=== PATIENT | female | born 1980 | race Caucasian/White ===

== ENCOUNTER 2017-09-14 15:54 | Inpatient (IN) | payer OTHER, SELFPAY ==
[2017-09-14 16:04] VITALS: BMI 33.1
[2017-09-14] MEDS: miSOPROStol 25 MCG TABLET VAGINAL (17:14)
[2017-09-14] MEDS: 0.9% Saline Lock 10 ML Syringe IV (17:15)
[2017-09-14 17:40] LABS: Hematocrit 35.6 % (37-47); Hemoglobin 11.7 g/dl (12.0-15.0); Mean Corp Hgb Conc 32.9 g/gl (32-36); Mean Corpuscular Hgb 30.3 pg (27.0-32.0); Mean Corpuscular Volume 92.2 fL (81-99); Mean Platelet Vol. 12.3 fl (6.2-12.0); Platelet Count 155 K/mm3 (150-450); RBC Distribution Width SD 46.3 fl (35.1-43.9); Red Blood Count 3.86 M/mm3 (4.2-5.4); Scan Indicated on CBC? Y/N NO; White Blood Count 7.1 K/mm3 (4.4-11.0)
[2017-09-14] MEDS: Lactated Ringers 1,000 ML 50 ML IV ×2 (18:39→21:34)
[2017-09-14] MEDS: 0.9% Normal Saline 100 ML IV.SOLN. INTRA-UTER (19:11)
--- NOTE | 2017-09-14 19:15 | PCM.HP.OB ---
History Date of Admission: 09/14/17 Final SUNNY: 09/07/17 Final SUNNY Source: US <20 weeks Gestational age: 41 Weeks and 0 Days History of this : 37yo @ 41 weeks here for IOL due to post dates. pt is dated by first trimester u/s which differs by 6 days of her LMP. pt denies VB, LOF or regular painful ctx. pt is transfer of care from [place] at 20 weeks. Pertinent Past Medical History: Hypercholesterolemia, anxiety Allergies No Known Allergies Allergy (Verified 09/14/17 16:07) Current Medications Acetaminophen (Tylenol) 325 - 650 mg PO Q4H PRN PRN PRN Reason: PAIN OR FEVER >100.4F Al Hydroxide/Mg Hydroxide (Mylanta Ii) 15 - 30 ml PO Q4H PRN PRN PRN Reason: INDIGESTION Citric Acid/Sodium Citrate (Bicitra) 30 ml PO UD PRN Lactated Ringer's () 1,000 mls @ 50 mls/hr IV .Q20H [facility] Last Admin: 09/14/17 18:39 Dose: 50 mls/hr Oxytocin/Sodium Chloride () 30 units in 500 mls @ 1 mls/hr IV .Q500H [facility] Last Admin: 09/14/17 17:15 Dose: Not Given Misoprostol (Cytotec) 25 mcg VAGINAL Q4H [facility] Stop: 09/15/17 13:16 Last Admin: 09/14/17 17:14 Dose: 25 mcg Nalbuphine HCl (Nubain) 5 - 10 mg IV Q3H PRN PRN PRN Reason: PAIN (4-10/10) Ondansetron HCl (Zofran) 4 mg IV Q8H PRN PRN PRN Reason: NAUSEA Promethazine HCl (Phenergan (Ll)) 6.25 - 12.5 mg IV Q4H PRN PRN; Protocol PRN Reason: IF NAUSEA PERSISTS Sodium Chloride () 5 - 15 ml IV UD [facility] Last Admin: 09/14/17 17:15 Dose: 10 ml Smoking Status: Never smoker Alcohol: None Drug Use: none Number of Fetus(es): 1 Review of Systems Cardiovascular: Denies: Chest Pain Respiratory: Denies: Cough Gastrointestinal: Denies: Abdominal Pain Physical Exam General: Alert, Oriented x3 Abdomen: Soft, Non Tender, Gravid Estimated gestational size: Appropriate for gestational size Presentation: Cephalic Cervix Dilation (cm): 1 Station: -2 Effacement (%): 80 Assessment/Plan 37yo @ 41 weeks, labor induction 1) admit to L&D 2) monitor FHR/TOCO 3) Labs reviewed: GBS NEG, Rub imm, HIV neg, HEP B neg, A+, RPR non reactive 4) Maria placed, will start pitocin 4 hr after cytotec
--- NOTE | 2017-09-14 19:22 | HP.PCM_ITS ---
History Date of Admission: 09/14/17 Final SUNNY: 09/07/17 Final SUNNY Source: US <20 weeks Gestational age: 41 Weeks and 0 Days History of this : 37yo @ 41 weeks here for IOL due to post dates. pt is dated by first trimester u/s which differs by 6 days of her LMP. pt denies VB, LOF or regular painful ctx. pt is transfer of care from [place] at 20 weeks. Pertinent Past Medical History: Hypercholesterolemia, anxiety Allergies No Known Allergies Allergy (Verified 09/14/17 16:07) Current Medications Acetaminophen (Tylenol) 325 - 650 mg PO Q4H PRN PRN PRN Reason: PAIN OR FEVER >100.4F Al Hydroxide/Mg Hydroxide (Mylanta Ii) 15 - 30 ml PO Q4H PRN PRN PRN Reason: INDIGESTION Citric Acid/Sodium Citrate (Bicitra) 30 ml PO UD PRN Lactated Ringer's () 1,000 mls @ 50 mls/hr IV .Q20H [facility] Last Admin: 09/14/17 18:39 Dose: 50 mls/hr Oxytocin/Sodium Chloride () 30 units in 500 mls @ 1 mls/hr IV .Q500H [facility] Last Admin: 09/14/17 17:15 Dose: Not Given Misoprostol (Cytotec) 25 mcg VAGINAL Q4H [facility] Stop: 09/15/17 13:16 Last Admin: 09/14/17 17:14 Dose: 25 mcg Nalbuphine HCl (Nubain) 5 - 10 mg IV Q3H PRN PRN PRN Reason: PAIN (4-10/10) Ondansetron HCl (Zofran) 4 mg IV Q8H PRN PRN PRN Reason: NAUSEA Promethazine HCl (Phenergan (Ll)) 6.25 - 12.5 mg IV Q4H PRN PRN; Protocol PRN Reason: IF NAUSEA PERSISTS Sodium Chloride () 5 - 15 ml IV UD [facility] Last Admin: 09/14/17 17:15 Dose: 10 ml Smoking Status: Never smoker Alcohol: None Drug Use: none Number of Fetus(es): 1 Review of Systems Cardiovascular: Denies: Chest Pain Respiratory: Denies: Cough Gastrointestinal: Denies: Abdominal Pain Physical Exam General: Alert, Oriented x3 Abdomen: Soft, Non Tender, Gravid Estimated gestational size: Appropriate for gestational size Presentation: Cephalic Cervix Dilation (cm): 1 Station: -2 Effacement (%): 80 Assessment/Plan 37yo @ 41 weeks, labor induction 1) admit to L&D 2) monitor FHR/TOCO 3) Labs reviewed: GBS NEG, Rub imm, HIV neg, HEP B neg, A+, RPR non reactive 4) Maria placed, will start pitocin 4 hr after cytotec
[2017-09-14] MEDS: Oxytocin 30 units/NS 500 ml 30 UNITS/500 ML IV.SOLN IV (21:19)
[2017-09-15] VITALS (15 sets, daily range): BP systolic 107–150; BP diastolic 63–85; PULSE 69–100; RESP 15–18; TEMP 36.6–38; O2SAT 98–100
[2017-09-15] MEDS: Lactated Ringers 1,000 ML 50 ML IV ×3 (03:00→11:01)
[2017-09-15] MEDS: Ondansetron 4 MG/2 ML Vial IV ×2 (03:33→13:12)
--- NOTE | 2017-09-15 04:40 | PCM.PN.BLA ---
Progress Note pt seen at bedside, VE: /-1 AROM performed clear fluid. pitocin at 1mu. Continue to labor- anticipate
[2017-09-15] MEDS: 0.9% Saline Lock 10 ML Syringe IV (05:44)
--- NOTE | 2017-09-15 08:54 | PCM.PN.BLA ---
Progress Note S: Report received from Dr. Babin. Patient comfortable with epidural and was able to rest at this time. Pitocin for postdates IOL has been titrated on and off due to 's intolerance to contractions and occasional variable decelerations. Patient's at bedside providing support. O: VSS, Afebrile FHT baseline 120, moderate variability, +accels, occasional early and mild variable decels with nando to 80-100 with spontaneous resolution with position change. Rare late decel also noted. Ctx q 2-4 minutes, MVUs 100-150. Pitocin was at 3 milliunits and then prolonged variable noted so pitocin discontinued. SVE = unchanged, 5/80/-1, FSE placed A: 37 y/o, IOL @ 41+ weeks, Pitocin Postdates IOL, Category II FHT P: 1) Continue present management - pitocin titration until adequate labor 2) Encourage position changes 3) Reassess cervix PRN 4) Dr. Mark GARVIN OB back-up at this time updated about patient status. Will continue present management. Mar Garcia CNM
--- NOTE | 2017-09-15 12:48 | PCM.PN.BLA ---
Progress Note S: Patient sitting up in bed still feeling comfort from epidural. Pitocin remains off at this time. Discussion with nursing staff about category II FHT. Per nursing staff, meconium is now noted. now having more frequent mild variable and early decels with each contraction. O: VSS, Afebrile EFW = 8.5# by SAM Hutchinson FHT baseline 110, moderate variability, early decels, occasional prolonged variable decels x 2-3 minutes with nando to 90s with spontaneous recovery with position changes. Ctx q 2-3 minutes, palpate strong. MVU <200. Pitocin off. SVE = 8/90/-1, moderate meconium noted on glove A: 37 y/o @ 41+ weeks, IOL for postdates, Cateogry II FHT P: 1) Try H+K position at this time, also consider exaggerated side lying position to help with descent and rotation of baby 2) Anticipate Mar Garcia CNM
[2017-09-15] MEDS: Amnioinfusion- 0.9% NS 1,000 ML IV.SOLN. 300 ML INTRA-UTER (14:00)
--- NOTE | 2017-09-15 15:58 | PCM.PN.BLA ---
Progress Note S: Thick meconium noted with last pad check and patient's temperature has started to increase. Decision made to do repeat SVE at this time. O: VSS, TMax = 100.1 FHT baseline 150, min to moderate variability, variable and early decels noted, rare accels. Ctx q 2-3 minutes, moderate to strong palpation SVE = 7/80/-1, cervical swelling noted A: 37 y/o @ 41+ weeks, Failure to Progress/Arrest of Dilation, Category II FHT P: 1) Consult with Dr. Mark GARVIN - decision for LTCS made 2) Transition to Medical Management for LTCS Mar Garcia CNM
[2017-09-15] MEDS: Sodium Citrate/Citric Acid 30 ML UDC PO (16:03)
[2017-09-15] MEDS: Cefazolin 2 GM in 0.9% Normal Saline 100 ML IV (16:10)
[2017-09-15] MEDS: Oxytocin 30 units/NS 500 ml 30 UNITS/500 ML IV.SOLN 167 UNITS IV (16:36)
--- NOTE | 2017-09-15 17:00 | PLAC_PTH ---
PATIENT: EMMA TALAMANTES LOC: [facility] U#:[id number] AGE/SX: 37/F ROOM: [facility] RE09/14/[address]: Dr. Marisol Flores MD : 1980 BED: 1 DIS: 09/18/2017 SPEC #: [id number] RECD: 09/15/17 23:19 STATUS: AKHIL MARIA ISABEL #: [id number] HUONG: 09/15/17 17:[address]: Marisol Flores DEPT: SURGICAL PATHOLOGY RECD BY: Jj Montero ENTERED: 09/16/17 10:54 SP TYPE: PLACENTA OT DR: No Primary Care Phys Tissues: Placenta, NOS Procedures: Surgery Specimen Level V HEADER OPERATION: Primary section PRE-OP DIAGNOSIS: Meconium fluid TISSUE SUBMITTED: Placenta MICROSCOPIC DIAGNOSIS [place] placenta (598 gm): Umbilical cord ? trivascular with no evidence of inflammation. Placental membranes ? mild acute chorionitis and deciduitis and pigment laden macrophages. Placental disc ? remote infarct, mildly increased intraparenchymal microcalcifications, intervillous congestion, Raj-Alverto change and intravillous congestion. AM:audra 09/20/17 MICROSCOPIC DESCRIPTION Slides are reviewed. Pigment laden macrophages are consistent with meconium staining of placental membranes. Clinical correlation is suggested. GROSS DESCRIPTION SPECIMEN: PLACENTA / CLINICAL INFORMATION: A. Weight: 3.851 kg B. Gestational Age: 41 weeks C. Sex: Male PLACENTAL WEIGHT (POST FIXATION): 598 gm PLACENTAL DIMENSIONS: 22 x 19 x 2.5 cm PLACENTAL SHAPE: Usual ovoid PLACENTAL WEIGHT FOR GESTATIONAL AGE: Within 10-99th percentile MEMBRANES - Present A. Insertion: Marginal B. Site of rupture from edge: At edge of placental disc C. Color of membrane: Hanley-dillard D. Abnormalities: None UMBILICAL CORD - Present A. Color: Hanley-dillard B. Insertion: Marginal C. Length: 27.5 cm D. Diameter: 1.5 cm E. Number of vessels: Three F. Abnormalities: None PLACENTAL DISC - Present A. Color of surface: Hanley-dillard B. surface abnormalities: None C. Maternal cotyledons: Intact with minimal tears D. Attached retro placental clot: No clot E. Cut surface: Dark red and spongy F. Lesions: Sections reveal a firm, hanley-white lesion measuring 2 x 1 x 0.6 cm at the periphery of the placental disc. G. Separate clot: Absent SECTIONS SUBMITTED: 1. Membrane roll and umbilical cord ( end notched) 2. Placental disc, and maternal surfaces, lesion 3. Placental disc, and maternal surfaces 4. Placental disc, and maternal surfaces 5. Additional membranes AM:audra 09/17/17 TC:2 CPT: 16690
--- NOTE | 2017-09-15 17:04 | OP.PCM_ITS ---
Delivery Classification: TAE Final SUNNY: 09/07/17 Final SUNNY Source: US <20 weeks Gestational age: 41 Weeks and 1 Days Indications for : - - protracted active labor, thick MSF, category 2 FHTs, remote from delivery Description of Procedure: The patient was taken to the operating room. She was prepped and draped in the dorsal supine position with a leftward tilt. A Pfannenstiel skin incision was made approximately 2 cm above the symphysis pubis and carried through to underlying layer fascia with the scalpel. The fascia was incised incised in the midline and extended laterally with the Ramirez scissors. The fascia was dissected off the rectus muscles with blunt and sharp dissection. The rectus muscles were in the midline and the peritoneum was entered bluntly. The peritoneal incision was stretched and the bladder blade was placed. The uterine incision was made in a low transverse fashion with the scalpel and extended superiorly and inferiorly with blunt dissection. When the arthrotomy was made thick meconium-stained fluid port out. The 's head was very wedged into the pelvis. I used care to break the suction and bring the head up to the incision in the flexed position. The head was then delivered without difficulty delivered without difficulty. The remainder of the infant was delivered with gentle traction and fundal pressure in the standard fashion. The mouth and nares were bulb suctioned. The cord was clamped and cut as the infant was stimulated. He was delayed 30 seconds and then the was handed off to the waiting nursing staff. The placenta was delivered with fundal massage and gentle traction in the standard fashion. The uterus was left in the peritoneal cavity and cleared of all clots and debris. The uterine incision was closed with #1 Vicryl in a running locked fashion. A second layer of the same suture was used in an imbricating fashion and the incision was examined for hemostasis. There were no cervical extensions of the lacerations, however the uterine incision did extend all the way over to the uterine arteries on both sides. It was very hemostatic. nd hemostasis was assured. The rectus muscles were examined and any bleeding was Bovie cauterized. Peritoneum and rectus muscles were closed en bloc with an 0 Vicryl suture in a running standard fashion.. The rectus fascia was examined and the bleeding was Bovie cauterized and the rectus fascia was closed with 1 Vicryl suture in a running standard fashion. The subcutaneous tissue was examining and any bleeding was Bovie cauterized. The subcutaneous tissue was reapproximated with 3-0 Vicryl suture. The skin was closed in a subcuticular fashion by the MASH FILTER OPERATOR with me present in the labor and delivery suite. All sponge, lap, and needle counts were correct. The patient was taken to her room for recovery in a stable condition. Amniotic Membrane Rupture Type: Artificial Amniotic Fluid Description: Clear - intially, progressed to thick MSF Placenta Disposition: Sent to Pathology Specimen(s) sent to pathology: placenta Drain: Maria to straight drain Fluids Replaced: 900 cc Cord Vessel Description: 3 Vessels Esitmated Blood Loss (ml): 800 Infant Gender: Male (1 minute): 8 (5 minute): 9 Delayed cord clamping: Yes Pre-op Antibiotic Given: - - zitrhomax 500mg Complications: None - Admit VTE Documentation VTE Present on Admission: No VTE Mechan Device Prophylaxis: SCD's VTE Pharm Prophylaxis ordered?: No Reason prophylaxis not ordered:: Procedure Not Indicated
[2017-09-15] MEDS: Senna/Docusate Sodium 1 Tablet PO (22:05)
[2017-09-15] MEDS: Ketorolac 30 MG/ML Syringe IV (23:48)
[2017-09-15] MEDS: Lactated Ringers 1,000 ML 100 ML IV (23:48)
[2017-09-16] VITALS (9 sets, daily range): BP systolic 100–120; BP diastolic 64–77; PULSE 71–86; RESP 16–18; TEMP 36.8–37.2; O2SAT 92–99
[2017-09-16 06:19] LABS: Hematocrit 28.6 % (37-47); Hemoglobin 9.3 g/dl (12.0-15.0); Mean Corp Hgb Conc 32.5 g/gl (32-36); Mean Corpuscular Hgb 30.2 pg (27.0-32.0); Mean Corpuscular Volume 92.9 fL (81-99); Platelet Count 114 K/mm3 (150-450); RBC Distribution Width CV 14.3 % (11.6-14.6); RBC Distribution Width SD 47.1 fl (35.1-43.9); Red Blood Count 3.08 M/mm3 (4.2-5.4); White Blood Count 14.3 K/mm3 (4.4-11.0)
[2017-09-16 06:23] LABS: Scan Indicated on CBC? Y/N NO
[2017-09-16] MEDS: Ketorolac 30 MG/ML Syringe IV ×2 (07:00→13:21)
[2017-09-16] MEDS: Lactated Ringers 1,000 ML 100 ML IV (07:41)
[2017-09-16] MEDS: Senna/Docusate Sodium 1 Tablet PO ×2 (10:49→21:17)
--- NOTE | 2017-09-16 15:17 | PCM.PN.OB ---
Subjective: pain controlled, average lochia, mild nausea earlier, no lightheadedness. Sebas. regular diet - Physical Exam General: Alert, Cooperative, No apparent distress Abdomen: Soft, Distended - moderately, softly, Tender - appropriately Extremities: Edema - 1+ Skin: Incision - bandage clean, dry and intact Vital Signs Temp Pulse Resp BP Pulse Ox 98.2 F 71 16 100/64 99 09/16/17 05:40 09/16/17 07:17 09/16/17 13:00 09/16/17 05:40 09/16/17 09:00 Oxygen Delivery Method Room Air Weight: 77 kg Body Mass Index (BMI) 33.1 Intake and Output for Last 24 Hours 09/14/17 09/15/17 09/16/17 23:59 23:59 23:59 Intake Total 6292 / 6292 1081 / 1081 Output Total 3400 / 3400 700 / 700 Balance 2892 / 2892 381 / 381 Laboratory Tests Past 24 Hrs 09/16/17 05:35 WBC 14.3 H RBC 3.08 L Hgb 9.3 L Hct 28.6 L MCV 92.9 MCH 30.2 MCHC 32.5 RDW 14.3 RDW Differential 47.1 H Plt Count 114 L MPV 12.0 Assessment/Plan POD#1 doing well routine care infant and doing well
[2017-09-16] MEDS: Naproxen 250 MG Tablet PO (18:50)
[2017-09-16] MEDS: Acetaminophen 500 MG Tablet 1000 MG PO (20:01)
[2017-09-16] MEDS: oxyCODONE 5 MG Tablet PO (21:17)
[2017-09-17] MEDS: oxyCODONE 5 MG Tablet PO ×4 (02:01→21:37)
[2017-09-17 02:04] VITALS: BP 103/62; PULSE 70; RESP 18; TEMP 36.6; O2SAT 99
[2017-09-17] MEDS: Naproxen 250 MG Tablet PO ×2 (04:41→14:05)
[2017-09-17 08:12] VITALS: BP 112/61; PULSE 68; RESP 16; TEMP 36.8; O2SAT 98
--- NOTE | 2017-09-17 09:16 | PCM.PN.OB ---
Subjective: pain well controlled, average lochia, + flatus, shanel. regular diet - Physical Exam General: Alert, Cooperative, No apparent distress Abdomen: Soft, Distended - moderately, softly, Tender - appropriately Extremities: Edema - 1+ Skin: Incision - bandage clean, dry and intact Vital Signs Temp Pulse Resp BP Pulse Ox 98.3 F 68 16 112/61 98 09/17/17 08:12 09/17/17 08:12 09/17/17 08:12 09/17/17 08:12 09/17/17 08:12 Oxygen Delivery Method Room Air Weight: 77 kg Body Mass Index (BMI) 33.1 Intake and Output for Last 24 Hours 09/15/17 09/16/17 09/17/17 23:59 23:59 23:59 Intake Total 6292 / 6292 1081 / 1081 Output Total 3400 / 3400 700 / 700 600 / 600 Balance 2892 / 2892 381 / 381 -600 / -600 Assessment/Plan POD#2 doing well routine care infant and doing well
[2017-09-17] MEDS: Senna/Docusate Sodium 1 Tablet PO ×2 (09:29→21:37)
[2017-09-17 14:07] VITALS: BP 118/80; PULSE 73; RESP 18; TEMP 36.6; O2SAT 98
[2017-09-17 19:50] VITALS: BP 100/62; PULSE 81; RESP 16; TEMP 36.6; O2SAT 99
[2017-09-18 02:10] VITALS: BP 117/66; PULSE 61; RESP 16; TEMP 36.5; O2SAT 97
[2017-09-18] MEDS: oxyCODONE 5 MG Tablet PO ×2 (02:10→06:48)
[2017-09-18 07:45] VITALS: BP 108/67; PULSE 67; RESP 16; TEMP 37.2
[2017-09-18] MEDS: Senna/Docusate Sodium 1 Tablet PO (10:46)
--- NOTE | 2017-09-18 11:00 | PCM.PN.OB ---
Subjective: Pain well controlled. Average lochai, + flatus, no BM. Sebas. regular diet - Physical Exam General: Alert, Cooperative, No apparent distress Abdomen: Soft, Distended - moderately, softly, Tender - appropriately Extremities: Edema - 2+ Skin: Incision - clean, dry and intact Vital Signs Temp Pulse Resp BP Pulse Ox 98.9 F 67 16 108/67 97 09/18/17 07:45 09/18/17 07:45 09/18/17 07:45 09/18/17 07:45 09/18/17 02:10 Oxygen Delivery Method Room Air Weight: 77 kg Body Mass Index (BMI) 33.1 Intake and Output for Last 24 Hours 09/16/17 09/17/17 09/18/17 23:59 23:59 23:59 Intake Total 1081 / 1081 Output Total 700 / 700 600 / 600 Balance 381 / 381 -600 / -600 Medical Necessity - Tobacco Use Smoking Status: Never smoker Assessment/Plan POD#3 doing well ready for d/c infant and doing well
--- NOTE | 2017-09-18 11:04 | DCINST_ITS ---
Discharge Diet: No Restrictions Discharge Activity: Return to Normal Activity, May Not Drive - for 2 weeks, May not drive while taking narcotic pain medications., May Shower, May Take a Tub Bath - in 7 days. May resume sexual activity in: 4-6 weeks Lifting Restrictions: 20 pounds Additional Activity Instructions:: Nothing in the vagina for 4-6 weeks. You may return to work/school in 6 weeks. Call your doctor if your incision/area has: Continuous Slow Oozing, Sudden Increased Bleeding, Increased Pain/ Swelling, Increased Redness, Foul Smelling Discharge Call your doctor if you observe: Fever of 101 or Higher, Using more than one pad per hour - for 2 hours Suture Line Care: Avoid Pulling/Pushing, Avoid Pinching/Bending Cleanse incision/area with: Keep Dressing Clean & Dry Additional Instructions: If you experience any of the following, contact your healthcare provider. * Bleeding that soaks a pad every hour for 2 hours * Fever 100.4 or higher * Unrelieved incision or abdominal pain * Swelling, redness, discharge or bleeding from your incision or episiotomy site * Your incision begins to separate * Problems urinating (including inability to urinate or burning while urinating) . * Visual changes * Severe headache * Flu-like symptoms * Pain or redness in one of both of your breasts * Pain, warmth, tenderness or swelling in your legs, especially the calf area * Frequent nausea and vomiting * Symptoms of depression or anxiety If you experience any of the following, call 911 or go to the nearest Emergency Room. * Chest pain * Problems breathing * Seizure activity * Partial or complete paralysis of a body part, slurred speech, weakness or drooping of the face, or a sudden inability to walk or hold your balance Allergies/Adverse Reactions: Allergies No Known Allergies Allergy (Verified 09/14/17 16:07) Medications to take at Discharge Pediatric Multivitamin Comb#30 [Gummies Children Multivitamin] 1 tab PO BID Naproxen 500 mg PO BID PRN #40 tab 09/18/17 Oxycodone HCl/Acetaminophen [Percocet 5/325] 1 - 2 tablet PO Q6H PRN PRN 7 Days #28 tablet 09/18/17 The following prescriptions were given: Oxycodone HCl/Acetaminophen [Percocet 5/325] 1 - 2 tablet PO Q6H PRN PRN 7 Days #28 tablet PRN Reason: Pain Naproxen 500 mg PO BID PRN #40 tab PRN Reason: Pain Follow-Up: Call to make an appointment with your doctor for an incision check in 1-2 weeks. You will also need a 6 week post- follow up appointment. Please Follow Up With: Marisol Flores MD - [phone] When: Call to make an appointment in your provider's office in 1-2 and 6 weeks. Primary Care Physician: Care Physician,No Primary [Primary Care Provider] -
--- NOTE | 2017-09-18 11:04 | PCM.DC.SUM ---
Discharge Date and Diagnosis Date of Admission: 09/14/17 Date of Discharge: 09/18/17 Hospital Course and Treatment Operations: - - Primary LTCS via Pfannensteil skin incision Procedures: None Summary of Care Provided: The patient is a 37 year old admitted at 41 weeks gestation for induction of labor due to being 41 weeks. She had right attack followed by Maria, Pitocin and artificial rupture membranes induction of labor. She had a very protracted active phase of labor. Very slow progress from 5-8 cm. Then she had cervical swelling and was found to be 7 cm. In addition, she had prolonged decelerations. When her cervix began to swell, and she is found to be 7 cm instead a 8 it was recommended that she undergo a primary section. This was performed without difficulty and the was 9 pounds. She had mild acute blood loss anemia appropriate for blood loss during surgery. By postoperative day 3 she was ambulating, urinating, tolerating regular diet without difficulty. She was discharged home with routine instructions and prescriptions. [] Discharge Diet: No Restrictions Discharge Activity: Return to Normal Activity, May Not Drive - for 2 weeks, May not drive while taking narcotic pain medications., May Shower, May Take a Tub Bath - in 7 days. May resume sexual activity in: 4-6 weeks Additional Activity Instructions:: Nothing in the vagina for 4-6 weeks. You may return to work/school in 6 weeks. Call your doctor if your incision/area has: Continuous Slow Oozing, Sudden Increased Bleeding, Increased Pain/ Swelling, Increased Redness, Foul Smelling Discharge Call your doctor if you observe: Fever of 101 or Higher, Using more than one pad per hour - for 2 hours Suture Line Care: Avoid Pulling/Pushing, Avoid Pinching/Bending Cleanse incision/area with: Keep Dressing Clean & Dry Home Medications: Medications to take at Discharge Pediatric Multivitamin Comb#30 [Gummies Children Multivitamin] 1 tab PO BID 09/14/17 Naproxen 500 mg PO BID PRN #40 tab 09/18/17 Oxycodone HCl/Acetaminophen [Percocet 5/325] 1 - 2 tablet PO Q6H PRN PRN 7 Days #28 tablet 09/18/17 Following Prescrptions Were Given to Patient: Oxycodone HCl/Acetaminophen [Percocet 5/325] 1 - 2 tablet PO Q6H PRN PRN 7 Days #28 tablet PRN Reason: Pain Naproxen 500 mg PO BID PRN #40 tab PRN Reason: Pain Primary Care Physician: Care Physician,No Primary [Primary Care Provider] - Please Follow Up With: Marisol Flores MD - [phone] When: Call to make an appointment in your provider's office in 1-2 and 6 weeks. Medical Necessity - Tobacco Use Smoking Status: Never smoker Meaningful Use Info Meaningful Use Diagnoses (Choose all that apply): None applicable
[2017-09-18 15:15] VITALS: BP 108/67; PULSE 70; RESP 16; TEMP 37.2
[2017-09-22 09:22] LABS: Pathology Specimen OB SEE PATHOLOGY REPORT
== END 2017-09-18 13:20 | disposition home or self-care (01) | DRG 765 ==
PROVIDERS: Admitting Provider Obstetrics & Gynecology; Visit Provider Obstetrics & Gynecology
DX: O48.0 Post-term pregnancy (principal); D62 Acute posthemorrhagic anemia; Z3A.41 41 weeks gestation of pregnancy; O76 Abnormality in fetal heart rate and rhythm complicating labor and delivery; O77.0 Labor and delivery complicated by meconium in amniotic fluid; O62.1 Secondary uterine inertia; Z37.0 Single live birth; O90.81 Anemia of the puerperium; O09.513 Supervision of elderly primigravida, third trimester
CPT/HCPCS: 59025; 59050; 85027; 86850; 86900; 88307; 99218; J7030; J7120; A4216; G0378; J2405

== ENCOUNTER 2017-09-21 13:05 | Outpatient (CLI) | payer OTHER, SELFPAY | END 2017-09-21 14:05 | disposition home or self-care (01) | LOC: WPOUT 13:11 → WP 13:12 | PROVIDERS: Visit Provider Obstetrics & Gynecology | DX: O92.79 Other disorders of lactation (principal) | CPT/HCPCS: 96152 ==